=== PATIENT | female | born 1960 | race Caucasian/White ===

== ENCOUNTER → 2017-10-07 | Outpatient (CLI) | payer MEDICARE, OTHER ==
[~2017-10-07] MED LIST: BUPRENORPHIN-N1 EACH SL; CYCL10 PO; ESTMEDA PO; IBUP600; Imitrex50 MG JT; MELO7.5 PO; Naprosyn500 MG PO; Percocet 10-321 EACH PO; Percocet 5-3251 EACH PO; SUBOXONE 8 MG-1 EACH SL; TRAM50 PO; Ultram50 MG PO; Valium5 MG PO; Veetids 500500 MG PO
[2017-10-09 00:41] LABS: Codeine Not Detected (NOTDET); Hydrocodone Not Detected (NOTDET); Hydromorphone Not Detected (NOTDET); Morphine Not Detected (NOTDET); Norhydrocodone Not Detected (NOTDET); Noroxycodone 750 ng/mL (NOTDET)
[2017-10-09 12:34] LABS: MDA Not Detected (NOTDET); MDEA Not Detected (NOTDET); MDMA Not Detected (NOTDET)
== END ==
LOC: LAB SRC 10:28
PROVIDERS: Physician Assistant
DX: F11.20 Opioid dependence, uncomplicated (principal)
CPT/HCPCS: G0480

== ENCOUNTER 2018-02-15 | Emergency (ER) | END 2018-02-15 23:11 | disposition home or self-care (01) ==